=== PATIENT | male | born 1995 | race Caucasian/White ===

== ENCOUNTER 2016-10-31 07:50 | Emergency (ER) | payer OTHER ==
[2016-10-31 07:58] VITALS: BP 143/86
[2016-10-31] MEDS ORDERED: KETOROLAC TROMETHAMINE 60 MG/2 ML VIAL IM ONE ×2 (08:06→08:11)
--- NOTE | 2016-10-31 08:12 | ERNOTE ---
ENT HPI Presenting Symptoms: dental pain Time Seen by Provider: 10/31/16 08:02 Source: patient Exam Limitations: no limitations - Immun/Allergies/Home Medications Immunizations: IMMUNIZATION HX Immunizations Up to Date Yes History of Influenza Vaccine No Hx Pneumococcal Vaccination No Allergies/Adverse Reactions: Allergies Allergy/AdvReac Type Severity Reaction Status Date / Time No Known Allergies Allergy Verified 10/31/16 07:58 Home Medications: HOME MEDICATIONS Nabumetone 750 mg PO BID #20 tablet 10/31/16 [Last Taken Unknown] - History of Present Illness Narrative: Pt had onset of dental pain last night, has tried acetaminophen and tooth gel with minimal relief Severity: Present: moderate ENT Location: Present: dental - left upper teeth around canine and premolar Prearrival Treatment: Present: over the counter meds Modifying Factors - Improves: Reports: medication - minimal Modifying Factors - Worsens: Reports: heat, cold Associated Symptoms - ENT: Denies: fever Review of Systems - Review of Systems Constitutional: Absent: fever EYE: Present: no symptoms reported ENT: Present: See HPI Respiratory: Present: no symptoms reported Cardiology: Present: no symptoms reported Gastrointestinal/Abdominal: Present: no symptoms reported All Other Systems: All systems neg except as marked - Patient's Past Medical History Patient History - Medical: No pertinent hx Patient History - Cardiac/Respiratory: No pertinent hx Patient History - Cancer: No Hx of Cancer Patient History - Surgical Procedures: No surgical history Patient History - Other: None - Social History Living Situations: alone Abuse History: No History of abuse Psych History: No pertinent hx Smoking Status: Current every day smoker Have you smoked in the past 12 months: Yes Alcohol Use: none Drug Use: none - Immunizations Immunizations Up to Date: Yes Hx Pneumococcal Vaccination: No History of Influenza Vaccine: No Physical Exam - Physical Exam General Appearance: Present: wd/wn, alert, no apparent distress Eye Exam: Normal inspection: bilateral Ears, Nose, Throat: Present: other - mild erythema of the buccal gingiva with minimal edema and no pustules or aphthae Neck: Present: normal inspection, nontender Respiratory: Present: no respiratory distress Neurological Exam: Present: alert, oriented, normal mood/affect, no motor/ sensory deficits Skin Exam: Present: normal color, warm/dry ED Progress - Vital Signs Patient's Vital Signs:: I have reviewed the patient's vital signs. Vital Signs: Vital Signs 10/31/16 07:55 Temperature 36 C L Pulse Rate 91 Respiratory 12 Rate Blood Pressure 143/86 O2 Sat by Pulse 100 Oximetry - Progress/Reassessment Chief Complaint: Dental Problem Departure Clinical Impression: Dental infection - Departure Disposition: Home Follow Up Needed Condition: Good Instructions: Dental Abscess, [id number] Additional Instructions: See a dentist as soon as possible Prescriptions: Nabumetone 750 mg PO BID #20 tablet
== END 2016-10-31 08:32 | disposition home or self-care (01) ==
LOC: ER 07:50
DX: K04.7 Periapical abscess without sinus (principal); F17.210 Nicotine dependence, cigarettes, uncomplicated